=== PATIENT | female | born 1960 | race Caucasian/White ===

== ENCOUNTER 2016-07-01 12:59 | Emergency (ER) | payer BC ==
[~2016-07-01] VITALS: Ht 160 cm; Wt 88.5 kg
[2016-07-01] MEDS ORDERED: VALIUM10 MG PO (13:11)
== END 2016-07-01 14:36 | disposition short-term general hospital (02) ==
LOC: ER 12:59
DX: M54.5 Low back pain (principal)
CPT/HCPCS: J1170; J1885; J2405